=== PATIENT | male | born 1945 | race Caucasian/White ===

== ENCOUNTER → 2022-04-27 08:48 | Outpatient (BNVA) | payer MEDICARE, SELFPAY | PROVIDERS: Visit Provider Nurse Practitioner Family | DX: G20 Parkinson's disease (principal); R41.3 Other amnesia | CPT/HCPCS: Q3014 ==

== ENCOUNTER → 2022-07-05 10:08 | Outpatient (BNVA) | payer MEDICARE, BC, SELFPAY | PROVIDERS: Visit Provider Nurse Practitioner Family | DX: G20 Parkinson's disease (principal); R41.3 Other amnesia; R26.9 Unspecified abnormalities of gait and mobility | CPT/HCPCS: Q3014 ==